=== PATIENT | female | born 1980 ===

== ENCOUNTER 2018-06-22 11:07 | Emergency (ER) | payer OTHER ==
[~2018-06-22] VITALS: Ht 170.2 cm; Wt 113.4 kg
[2018-06-22] MEDS ORDERED: NORVASC10 MG (11:27)
== END 2018-06-22 14:15 | disposition home or self-care (01) ==
LOC: ER 11:07
DX: H00.12 Chalazion right lower eyelid (principal)

== ENCOUNTER 2018-11-20 13:00 | Emergency (ER) | payer OTHER ==
[~2018-11-20] VITALS: Ht 170.2 cm; Wt 117.9 kg
[~2018-11-20 13:00] MED LIST: NORVASC10 MG
[2018-11-20] MEDS ORDERED: IRBESARTAN-HCT1 EACH (13:22)
[2018-11-20] MEDS ORDERED: CYCLOBENZAPRINE10 MG (13:22)
== END 2018-11-20 19:22 | disposition home or self-care (01) ==
LOC: ER 13:00
DX: G44.209 Tension-type headache, unspecified, not intractable (principal)